=== PATIENT | female | born 1950 | race Caucasian/White ===

== ENCOUNTER 2017-12-06 19:33 | Emergency (ER) | payer MEDICARE, OTHER ==
[~2017-12-06] VITALS: Ht 157.5 cm; Wt 79.0 kg
[~2017-12-06 19:33] MED LIST: METO-292 PO; ONDA4TAB6 PO
[2017-12-06] MEDS ORDERED: ketorolac trometh inj. 60 MG/2 ML VIAL IM ONE (20:00)
[2017-12-06] MEDS ORDERED: orphenadrine citrate 60mg/2ml inj. IM ONE (20:00)
[2017-12-06] MEDS ORDERED: morphine 4 MG/ML inj SYRINge IV ONE (20:00)
[2017-12-06 20:41] VITALS: BP 127/82
== END 2017-12-06 20:54 | disposition home or self-care (01) ==
LOC: ER 19:33
DX: M54.5 Low back pain (principal); M62.838 Other muscle spasm; G89.29 Other chronic pain
CPT/HCPCS: 96374; 96375; 99284; J1885; J2270; J2360

== ENCOUNTER 2017-12-07 00:40 | Emergency (ER) | payer MEDICARE, OTHER ==
[~2017-12-07] VITALS: Ht 157.5 cm; Wt 79.0 kg
[2017-12-07] MEDS ORDERED: diazepam 5mg tablet PO ONE (01:35)
[2017-12-07] MEDS ORDERED: oxyCODONE/APAP 10/325mg tablet PO ONE (01:35)
[2017-12-07 01:43] VITALS: BP 136/90
== END 2017-12-07 01:48 | disposition home or self-care (01) ==
LOC: ER 00:40
DX: M54.5 Low back pain (principal); G89.29 Other chronic pain; Z88.1 Allergy status to other antibiotic agents
CPT/HCPCS: 99283

== ENCOUNTER 2018-09-01 11:06 | Emergency (ER) | payer MEDICARE, OTHER ==
[~2018-09-01] VITALS: Ht 157.5 cm; Wt 81.0 kg
[2018-09-01 11:10] VITALS: BP 123/78
[2018-09-01] MEDS ORDERED: acetaminophen 325mg tablet PO ONE (12:10)
[2018-09-01] MEDS ORDERED: ibuprofen tablet 400 MG TABLET PO ONE (12:10)
[2018-09-01] MEDS ORDERED: ondansetron 4mg rapidly disintigrating tab PO ONE (12:30)
[2018-09-01] MEDS ORDERED: HYDR-3965 PO (13:28)
== END 2018-09-01 13:33 | disposition home or self-care (01) ==
LOC: ER 11:07
DX: S06.0X0A Concussion without loss of consciousness, initial encounter (principal); G89.29 Other chronic pain; Z98.890 Other specified postprocedural states; Z88.8 Allergy status to other drugs, medicaments and biological substances; Z88.1 Allergy status to other antibiotic agents; W06.XXXA Fall from bed, initial encounter; Y93.89 Activity, other specified; Y92.89 Other specified places as the place of occurrence of the external cause; Y99.9 Unspecified external cause status
CPT/HCPCS: 70450; 99284

== ENCOUNTER 2018-09-10 14:20 | Observation (INO) | payer MEDICARE, OTHER ==
[~2018-09-10] VITALS: Ht 157.5 cm; Wt 84.0 kg
[~2018-09-10 14:20] MED LIST changes: +HYDR-3965 PO
[2018-09-10 15:32] LABS: BASOPHILS # (AUTO) 0.1 X10'3 (0-0.2); BASOPHILS % (AUTO) 0.8 % (0-1); EOSINOPHILS # (AUTO) 0.3 X10'3 (0-0.9); EOSINOPHILS % (AUTO) 3.5 % (0-6); HEMATOCRIT 40.7 % (35.0-45.0); HEMOGLOBIN 13.9 g/dl (12.0-16.0); LYMPHOCYTES # (AUTO) 4.4 X10'3 (1.1-4.8); LYMPHOCYTES % (AUTO) 45.7 % (21-51); MEAN CORPUSCULAR HEMOGLOBIN 29.3 PG (27.0-31.0); MEAN CORPUSCULAR HGB CONC 34.2 % (33.0-36.5); MEAN CORPUSCULAR VOLUME 85.6 FL (78-98); MEAN PLATELET VOLUME 6.5 FL (7.4-10.4); MONOCYTES # (AUTO) 0.6 X10'3 (0-0.9); NEUTROPHILS # (AUTO) 4.3 X10'3 (1.8-7.7); PLATELET COUNT 348 X10'3 (140-440); RED BLOOD COUNT 4.75 X10'6 (4.20-5.60); RED CELL DISTRIBUTION WIDTH 13.5 % (11.5-14.5); WHITE BLOOD COUNT 9.7 X10'3 (4.5-11.0)
[2018-09-10 15:51] LABS: PARTIAL THROMBOPLASTIN TIME 24 SECONDS (22-32)
[2018-09-10 16:03] LABS: ALANINE AMINOTRANSFERASE 16 U/L (12-78); ALBUMIN 3.7 G/DL (3.4-5.0); ALBUMIN/GLOBULIN RATIO 0.9 (1.1-1.5); ALKALINE PHOSPHATASE 67 IU/L (46-116); ANION GAP 10 (8-16); ASPARTATE AMINO TRANSFERASE 11 U/L (10-37); BILIRUBIN,TOTAL 0.2 MG/DL (0.1-1.0); BLOOD UREA NITROGEN 10 MG/DL (7-18); CALCIUM 9.2 MG/DL (8.5-10.1); CHLORIDE 100 MMOL/L (99-107); CREATININE 0.77 MG/DL (0.40-0.90); GLUCOSE 92 MG/DL (70-104); MAGNESIUM 1.7 MG/DL (1.5-2.4); PHOSPHORUS 3.7 MG/DL (2.3-4.5); POTASSIUM 4.1 MMOL/L (3.5-5.1); SODIUM 137 MMOL/L (135-145); TOTAL CARBON DIOXIDE 27.3 MMOL/L (24-32); TOTAL PROTEIN 7.8 G/DL (6.4-8.2); eGFR 75 ML/MIN
[2018-09-10 16:15] LABS: CLARITY,URINE SLIGHTLY CLOUDY (Clear); COLOR,URINE YELLOW (Yellow); GLUCOSE, URINE NEGATIVE (Neg); KETONES,URINE NEGATIVE (Neg); LEUKOCYTE ESTERASE ,URINE SMALL (Neg); NITRITES, URINE NEGATIVE (Neg); OCCULT BLOOD,URINE NEGATIVE (Neg); PROTEIN,URINE TRACE mg/dl (Neg); UROBILINOGEN,URINE 0.2 E.U/dL (0.2-1.0)
[2018-09-10 16:18] LABS: UA COLLECTION TYPE CLN CATCH MIDSTREAM
[2018-09-10 16:24] LABS: BACTERIA,URINE 1+ /HPF (Neg); RBC,URINE 0-2 /HPF (0-2); WBC,URINE 50-100 /HPF (0-4)
[2018-09-10 16:25] LABS: CAL OXALATE CRYSTALS 1+ /HPF (NEGATIVE); SQUAMOUS EPITHELIAL CELL,UR FEW /LPF (FEW); TRANSITIONAL EPI CELLS,URINE FEW /HPF; WBC CLUMPS,URINE MODERATE /HPF (NEGATIVE)
[2018-09-10 16:41] LABS: ABG BASE EXCESS -1.7 mmol/L (-2.0-3.0); ABG HCO3 23.7 mmol/L (22.0-26.0); ABG OXYGEN SATURATION 95.5 % (95-98); ABG PCO2 (T) 42.6 mmHg (32.0-45.0); ABG PH (T) 7.364 (7.350-7.450); ABG PO2 (T) 78.5 mmHg (83-108); ALLEN'S TEST Positive; FCOHb 0.8 % (0.5-1.5); FLOW 4 L/min; FO2Hb 94.7 % (94-100)
[2018-09-10] MEDS ORDERED: iohexol 350MG/ML 100ml bottle IV ONE (16:42)
[2018-09-10] MEDS ORDERED: CefTRIAXone/D5W-Rocephin 1gm 50 ML IV ONE (16:50)
[2018-09-10] MEDS ORDERED: aspirin 325mg tablet PO ONE (17:05)
[2018-09-10] MEDS ORDERED: traMADol 50MG tablet PO ONE (17:15)
[2018-09-10] MEDS ORDERED: CARI350T28 (17:34)
[2018-09-10] MEDS ORDERED: ONDA4TAB12 (17:34)
[2018-09-10] MEDS ORDERED: SUMA6PEN9 (17:34)
[2018-09-10] MEDS ORDERED: CYCL-1 (17:34)
[2018-09-10] MEDS ORDERED: PROM25TA14 (17:34)
[2018-09-10] MEDS ORDERED: IBUP-1985 (17:34)
[2018-09-10] MEDS ORDERED: DIAZ10TA15 (17:34)
[2018-09-10] MEDS ORDERED: potassium Cl 40MEQ/NS 500ml 500 ML IV PRN ×2 (18:15)
[2018-09-10] MEDS ORDERED: mag hydrox/Alum hydrox/simeth 30ml oral suspension PO PRN (18:15)
[2018-09-10] MEDS ORDERED: magnesium hydroxide 30ml (MOM) UD suspension PO PRN (18:15)
[2018-09-10] MEDS ORDERED: magnesium Cl slow-release 64mg tablet PO PRN (18:15)
[2018-09-10] MEDS ORDERED: acetaminophen 325mg tablet PO PRN ×2 (18:15)
[2018-09-10] MEDS ORDERED: magnesium 4gm in 100ml NS 100 ML IV PRN (18:15)
[2018-09-10] MEDS ORDERED: potassium Cl 20 mEq SR tablet PO PRN ×2 (18:15)
[2018-09-10] MEDS: normal saline 1000ml 1,000 ML IV SCH (18:30)
[2018-09-10] MEDS: morphine 2 MG/ML inj. syringe IV PRN (18:53)
[2018-09-10 19:06] LABS: HEMOGLOBIN A1C 5.7 % (4.5-6.2)
[2018-09-10 19:09] LABS: CHOL/HDL RATIO 7.3 (0.00-4.99); CHOLESTEROL 277 MG/DL (0-200); HDL CHOLESTEROL 38 MG/DL (35-60); LDL CHOLESTEROL 136 MG/DL (50-100); TRIGLYCERIDES 529 MG/DL (20-135)
[2018-09-10 20:40] VITALS: BP 122/74
[2018-09-10] MEDS ORDERED: temazepam 15mg capsule PO PRN (21:00)
[2018-09-10 21:59] VITALS: BP_SYST 111; BP_SYST 120; BP_DIAS 65; BP_DIAS 66
[2018-09-10 22:00] VITALS: BP 120/66
[2018-09-10] MEDS: HYDROcodone/acetaminophen 5mg/325mg tablet PO PRN (22:14)
[2018-09-10] MEDS ORDERED: GABA-532 PO (22:58)
[2018-09-10] MEDS: ondansetron/PF 4mg/2ml inj IV PRN (23:13)
[2018-09-10] MEDS ORDERED: gabapentin 300mg capsule PO ONE (23:24)
[2018-09-11] VITALS (7 sets, daily range): BP systolic 105–169; BP diastolic 59–90
[2018-09-11] MEDS: morphine 2 MG/ML inj. syringe IV PRN ×4 (01:01→23:43)
[2018-09-11 03:26] LABS: ALANINE AMINOTRANSFERASE 14 U/L (12-78); ALBUMIN 3.1 G/DL (3.4-5.0); ALBUMIN/GLOBULIN RATIO 0.9 (1.1-1.5); ALKALINE PHOSPHATASE 59 IU/L (46-116); ANION GAP 11 (8-16); ASPARTATE AMINO TRANSFERASE 12 U/L (10-37); BILIRUBIN,TOTAL 0.2 MG/DL (0.1-1.0); BLOOD UREA NITROGEN 12 MG/DL (7-18); BUN/CREATININE RATIO 13.6 (6.6-38.0); CALCIUM 8.3 MG/DL (8.5-10.1); CHLORIDE 101 MMOL/L (99-107); CREATININE 0.88 MG/DL (0.40-0.90); GLUCOSE 118 MG/DL (70-104); POTASSIUM 3.7 MMOL/L (3.5-5.1); SODIUM 139 MMOL/L (135-145); TOTAL CARBON DIOXIDE 26.6 MMOL/L (24-32); TOTAL PROTEIN 6.7 G/DL (6.4-8.2); eGFR 64 ML/MIN
[2018-09-11 03:31] LABS: MAGNESIUM 1.6 MG/DL (1.5-2.4)
[2018-09-11 03:38] LABS: BASOPHILS # (AUTO) 0.1 X10'3 (0-0.2); BASOPHILS % (AUTO) 0.6 % (0-1); EOSINOPHILS # (AUTO) 0.3 X10'3 (0-0.9); EOSINOPHILS % (AUTO) 3.7 % (0-6); HEMATOCRIT 37.2 % (35.0-45.0); HEMOGLOBIN 12.5 g/dl (12.0-16.0); LYMPHOCYTES # (AUTO) 3.4 X10'3 (1.1-4.8); LYMPHOCYTES % (AUTO) 40.4 % (21-51); MEAN CORPUSCULAR HGB CONC 33.7 % (33.0-36.5); MEAN PLATELET VOLUME 6.9 FL (7.4-10.4); MONOCYTES # (AUTO) 0.5 X10'3 (0-0.9); MONOCYTES % (AUTO) 5.8 % (2-12); NEUTROPHILS # (AUTO) 4.2 X10'3 (1.8-7.7); NEUTROPHILS % (AUTO) 49.5 % (42-75); PLATELET COUNT 307 X10'3 (140-440); RED BLOOD COUNT 4.32 X10'6 (4.20-5.60); RED CELL DISTRIBUTION WIDTH 13.5 % (11.5-14.5); WHITE BLOOD COUNT 8.5 X10'3 (4.5-11.0)
[2018-09-11] MEDS: normal saline 1000ml 1,000 ML IV SCH ×3 (03:44→22:52)
[2018-09-11] MEDS: HYDROcodone/acetaminophen 5mg/325mg tablet PO PRN ×4 (05:35→22:08)
[2018-09-11] MEDS: K and/or MAG REPLACEMENT MC SCH (08:00)
[2018-09-11] MEDS: CefTRIAXone 2gm/D5W 50ml 50 ML IV SCH (08:03)
[2018-09-11] MEDS: enoxaparin 40mg/0.4ml syringe SQ SCH (08:07)
[2018-09-11] MEDS: ondansetron/PF 4mg/2ml inj IV PRN ×2 (09:14→22:52)
[2018-09-11] MEDS ORDERED: LORazepam 2 mg/ml vial IV ONE (09:15)
[2018-09-11] MEDS: atorvastatin 20mg tablet PO SCH (12:42)
[2018-09-11] MEDS: aspirin 81mg tab.chew PO SCH (12:42)
[2018-09-11] MEDS ORDERED: iohexol 350MG/ML 100ml bottle IV ONE (15:00)
[2018-09-11] MEDS: lactobacillus rhamnosus 10,000 MMU CELLS/CAPSULE PO SCH (20:29)
[2018-09-11] MEDS: omega-3 acid ethyl esters 1GM capsule PO SCH (20:29)
[2018-09-11] MEDS ORDERED: gabapentin 300mg capsule PO SCH (21:00)
[2018-09-12 01:58] VITALS: BP 129/69
[2018-09-12] MEDS: HYDROcodone/acetaminophen 5mg/325mg tablet PO PRN ×2 (04:12→09:12)
[2018-09-12 05:57] VITALS: BP 112/60
[2018-09-12 06:00] VITALS: BP 112/60
[2018-09-12 06:03] LABS: BASOPHILS % (AUTO) 0.5 % (0-1); EOSINOPHILS # (AUTO) 0.5 X10'3 (0-0.9); EOSINOPHILS % (AUTO) 5.9 % (0-6); HEMATOCRIT 38.5 % (35.0-45.0); HEMOGLOBIN 13.1 g/dl (12.0-16.0); LYMPHOCYTES # (AUTO) 2.6 X10'3 (1.1-4.8); LYMPHOCYTES % (AUTO) 33.8 % (21-51); MEAN CORPUSCULAR VOLUME 85.4 FL (78-98); MEAN PLATELET VOLUME 6.8 FL (7.4-10.4); MONOCYTES # (AUTO) 0.5 X10'3 (0-0.9); MONOCYTES % (AUTO) 6.2 % (2-12); NEUTROPHILS # (AUTO) 4.1 X10'3 (1.8-7.7); NEUTROPHILS % (AUTO) 53.6 % (42-75); PLATELET COUNT 290 X10'3 (140-440); RED BLOOD COUNT 4.51 X10'6 (4.20-5.60); RED CELL DISTRIBUTION WIDTH 13.2 % (11.5-14.5); WHITE BLOOD COUNT 7.7 X10'3 (4.5-11.0)
[2018-09-12 06:23] LABS: ALANINE AMINOTRANSFERASE 13 U/L (12-78); ALBUMIN/GLOBULIN RATIO 0.8 (1.1-1.5); ALKALINE PHOSPHATASE 56 IU/L (46-116); ANION GAP 9 (8-16); ASPARTATE AMINO TRANSFERASE 10 U/L (10-37); BILIRUBIN,TOTAL 0.2 MG/DL (0.1-1.0); BLOOD UREA NITROGEN 9 MG/DL (7-18); BUN/CREATININE RATIO 13.8 (6.6-38.0); CALCIUM 8.6 MG/DL (8.5-10.1); CHLORIDE 105 MMOL/L (99-107); CREATININE 0.65 MG/DL (0.40-0.90); GLUCOSE 109 MG/DL (70-104); MAGNESIUM 1.8 MG/DL (1.5-2.4); POTASSIUM 3.8 MMOL/L (3.5-5.1); SODIUM 140 MMOL/L (135-145); TOTAL CARBON DIOXIDE 25.8 MMOL/L (24-32); TOTAL PROTEIN 6.6 G/DL (6.4-8.2); eGFR > 90 ML/MIN
[2018-09-12] MEDS: morphine 2 MG/ML inj. syringe IV PRN (06:46)
[2018-09-12 08:00] VITALS: BP 137/80
[2018-09-12] MEDS: K and/or MAG REPLACEMENT MC SCH (08:00)
[2018-09-12] MEDS: aspirin 81mg tab.chew PO SCH (08:10)
[2018-09-12] MEDS: lactobacillus rhamnosus 10,000 MMU CELLS/CAPSULE PO SCH (08:10)
[2018-09-12] MEDS: atorvastatin 20mg tablet PO SCH (08:10)
[2018-09-12] MEDS: omega-3 acid ethyl esters 1GM capsule PO SCH (08:11)
[2018-09-12] MEDS: CefTRIAXone 2gm/D5W 50ml 50 ML IV SCH (08:12)
[2018-09-12] MEDS: enoxaparin 40mg/0.4ml syringe SQ SCH (08:14)
[2018-09-12] MEDS: normal saline 1000ml 1,000 ML IV SCH (09:09)
[2018-09-12] MEDS ORDERED: LEVO500T89 PO (10:11)
[2018-09-12] MEDS ORDERED: ATOR20TA66 PO (10:11)
[2018-09-12] MEDS ORDERED: LACT1CAP26 PO (10:11)
[2018-09-12] MEDS ORDERED: OMEG1CAP PO (10:11)
== END 2018-09-12 12:00 | disposition home or self-care (01) ==
LOC: ER 14:21 → ED HOLD 18:15 → ORTHO 4S 20:35
PROVIDERS: ADMIT Internal Medicine; ATTEND Internal Medicine
DX: G45.9 Transient cerebral ischemic attack, unspecified (principal); N39.0 Urinary tract infection, site not specified; G57.92 Unspecified mononeuropathy of left lower limb; I10 Essential (primary) hypertension; G89.4 Chronic pain syndrome; J96.01 Acute respiratory failure with hypoxia; B96.20 Unspecified Escherichia coli [E. coli] as the cause of diseases classified elsewhere; R42 Dizziness and giddiness; S06.0X9A Concussion with loss of consciousness of unspecified duration, initial encounter; X58.XXXA Exposure to other specified factors, initial encounter; Y93.89 Activity, other specified; Y92.89 Other specified places as the place of occurrence of the external cause; Y99.8 Other external cause status
CPT/HCPCS: 36415; 36600; 70450; 70496; 70498; 70551; 71045; 71275; 80053; 80061; 81001; 82803; 83036; 83735; 84100; 84484; 85018; 85025; 85610; 85730; 87070; 87077; 87088; 87186; 93306; 93880; 94760; 96361; 96365; 96366; 96372; 96375; 96376; 97116; 97161; 97530; 99284; G0378; J0696; J2060; J2270; J2405; J7030; Q9967; J1650

== ENCOUNTER 2018-10-16 06:32 | Emergency (ER) | payer MEDICARE, OTHER ==
[~2018-10-16] VITALS: Ht 157.5 cm; Wt 83.0 kg
[~2018-10-16 06:32] MED LIST changes: +ATOR20TA66 PO; +GABA-532 PO; -HYDR-3965 PO; +LACT1CAP26 PO; -METO-292 PO; +OMEG1CAP PO; +SUMA6PEN9
[2018-10-16] MEDS ORDERED: orphenadrine citrate 60mg/2ml inj. IM ONE (06:45)
[2018-10-16] MEDS ORDERED: ketorolac trometh inj. 60 MG/2 ML VIAL IM ONE (06:45)
[2018-10-16] MEDS ORDERED: HYDROcodone/acetaminophen 10/325mg tab PO ONE (06:45)
[2018-10-16] MEDS ORDERED: ASPI-1265 PO (06:52)
[2018-10-16] MEDS ORDERED: CARSR60C PO (06:52)
[2018-10-16] MEDS ORDERED: ondansetron 4mg rapidly disintigrating tab PO ONE (06:55)
[2018-10-16] MEDS ORDERED: morphine 4 MG/ML inj SYRINge IM ONE ×2 (07:05→09:25)
[2018-10-16] MEDS ORDERED: ORPH100T2 PO (09:17)
[2018-10-16] MEDS ORDERED: HYDR-4353 PO (09:17)
[2018-10-16 09:34] VITALS: BP 130/69
== END 2018-10-16 09:59 | disposition home or self-care (01) ==
LOC: ER 06:33
DX: S09.90XA Unspecified injury of head, initial encounter (principal); G89.29 Other chronic pain; M54.2 Cervicalgia; I10 Essential (primary) hypertension; Z98.51 Tubal ligation status; Z98.890 Other specified postprocedural states; Z88.1 Allergy status to other antibiotic agents; Z88.8 Allergy status to other drugs, medicaments and biological substances; Z79.82 Long term (current) use of aspirin; Z79.899 Other long term (current) drug therapy; W06.XXXA Fall from bed, initial encounter; Y93.89 Activity, other specified; Y92.89 Other specified places as the place of occurrence of the external cause; Y99.8 Other external cause status
CPT/HCPCS: 70450; 72125; 93005; 96372; 99284; J2270; J2360

== ENCOUNTER 2019-01-07 03:51 | Emergency (ER) | payer MEDICARE, OTHER ==
[~2019-01-07] VITALS: Ht 157.5 cm; Wt 79.1 kg
[~2019-01-07 03:51] MED LIST changes: +ASPI-1265 PO; -ATOR20TA66 PO; +CARSR60C PO; -LACT1CAP26 PO; -OMEG1CAP PO; -ONDA4TAB6 PO; +ORPH100T2 PO
[2019-01-07 03:58] VITALS: BP 140/85
[2019-01-07] MEDS ORDERED: HYDROcodone/acetaminophen 5mg/325mg tablet PO ONE (04:10)
[2019-01-07] MEDS ORDERED: ketorolac trometh inj. 60 MG/2 ML VIAL IM ONE (04:10)
[2019-01-07] MEDS ORDERED: cyclobenzaprine 10mg tablet PO ONE (04:10)
[2019-01-07] MEDS ORDERED: LIDOcaine 5% patch TP ONE (04:10)
[2019-01-07] MEDS ORDERED: acetaminophen 325mg tablet PO ONE (04:10)
[2019-01-07] MEDS ORDERED: LIDO700A32 TOP (04:13)
[2019-01-07] MEDS ORDERED: HYDR-3965 PO (04:13)
[2019-01-07] MEDS ORDERED: CYCL-1 PO (04:13)
[2019-01-07] MEDS ORDERED: ondansetron 4mg rapidly disintigrating tab PO ONE (04:15)
[2019-01-07] MEDS ORDERED: proCHLORperazine 10 MG/2 ml inj IM ONE (04:20)
[2019-01-07] MEDS ORDERED: DIPH50CA3 PO (04:28)
--- NOTE | 2019-01-07 04:55 | NUR ---
pt requesting something for discharge to help her sleep. dr. crook updated and writing her a perscription for benedryl. pt reports she takes benedryl at night and it has not been helping. she requests a few doses of md roberth will not provide pt a perscription for this. pt reports she is disapointed.
== END 2019-01-07 05:07 | disposition home or self-care (01) ==
LOC: ER 03:52
DX: M54.5 Low back pain (principal); G89.29 Other chronic pain; I10 Essential (primary) hypertension; Z56.0 Unemployment, unspecified; Z88.1 Allergy status to other antibiotic agents; Z79.82 Long term (current) use of aspirin; Z98.51 Tubal ligation status
CPT/HCPCS: 96372; 99283; J0780; J1885

== ENCOUNTER 2019-03-05 16:46 | Emergency (ER) | payer MEDICARE, OTHER ==
[~2019-03-05] VITALS: Ht 157.5 cm; Wt 79.0 kg
[~2019-03-05 16:46] MED LIST changes: +CYCL-1 PO; +DIPH50CA3 PO; +LIDO700A32 TOP
[2019-03-05] MEDS ORDERED: proCHLORperazine 10 MG/2 ml inj IM ONE (18:55)
[2019-03-05] MEDS ORDERED: diphenhydrAMINE 50 mg/ml inj IM ONE (18:55)
[2019-03-05 20:51] VITALS: BP 123/69
== END 2019-03-05 20:56 | disposition home or self-care (01) ==
LOC: ER 16:46
DX: G89.29 Other chronic pain (principal); R68.84 Jaw pain; I10 Essential (primary) hypertension; G43.909 Migraine, unspecified, not intractable, without status migrainosus; Z98.890 Other specified postprocedural states; Z98.51 Tubal ligation status; Z56.0 Unemployment, unspecified; Z88.8 Allergy status to other drugs, medicaments and biological substances; Z88.1 Allergy status to other antibiotic agents; Z79.82 Long term (current) use of aspirin; Z79.899 Other long term (current) drug therapy
CPT/HCPCS: 36415; 70150; 85651; 96372; 99284; J0780; J1200

== ENCOUNTER 2019-08-13 17:21 | Emergency (ER) | payer MEDICARE, OTHER ==
[~2019-08-13] VITALS: Ht 157.5 cm; Wt 77.0 kg
[2019-08-13 18:14] LABS: BASOPHILS # (AUTO) 0.1 X10'3 (0-0.2); BASOPHILS % (AUTO) 1.1 % (0-1); EOSINOPHILS # (AUTO) 0.2 X10'3 (0-0.9); HEMATOCRIT 42.1 % (35.0-45.0); LYMPHOCYTES # (AUTO) 5.2 X10'3 (1.1-4.8); LYMPHOCYTES % (AUTO) 42.5 % (21-51); MEAN CORPUSCULAR HGB CONC 35.7 g/dL (33.0-36.5); MEAN CORPUSCULAR VOLUME 84.1 FL (78-98); MONOCYTES # (AUTO) 0.8 X10'3 (0-0.9); MONOCYTES % (AUTO) 6.7 % (2-12); NEUTROPHILS # (AUTO) 5.9 X10'3 (1.8-7.7); NEUTROPHILS % (AUTO) 47.7 % (42-75); PLATELET COUNT 359 X10'3 (140-440); RED BLOOD COUNT 5.01 X10'6 (4.20-5.60); RED CELL DISTRIBUTION WIDTH 13.7 % (11.5-14.5); WHITE BLOOD COUNT 12.3 X10'3 (4.5-11.0)
[2019-08-13] MEDS ORDERED: aspirin 81mg tab.chew PO ONE (18:15)
[2019-08-13] MEDS ORDERED: ondansetron 4mg rapidly disintigrating tab PO ONE (18:15)
[2019-08-13 18:21] LABS: ALANINE AMINOTRANSFERASE 14 U/L (12-78); ALBUMIN 3.9 G/DL (3.4-5.0); ALBUMIN/GLOBULIN RATIO 0.8 (1.1-1.5); ALKALINE PHOSPHATASE 77 IU/L (46-116); ANION GAP 15 (8-16); ASPARTATE AMINO TRANSFERASE 12 U/L (10-37); BILIRUBIN,TOTAL 0.4 MG/DL (0.1-1.0); BLOOD UREA NITROGEN 11 MG/DL (7-18); BUN/CREATININE RATIO 14.5 (6.6-38.0); CALCIUM 9.8 MG/DL (8.5-10.1); CHLORIDE 101 MMOL/L (99-107); CREATININE 0.76 MG/DL (0.40-0.90); GLUCOSE 107 MG/DL (70-104); SODIUM 138 MMOL/L (135-145); TOTAL CARBON DIOXIDE 22.3 MMOL/L (24-32); TOTAL PROTEIN 8.7 G/DL (6.4-8.2); eGFR 76 ML/MIN
[2019-08-13] MEDS ORDERED: LORazepam 2 mg/ml vial IV ONE (19:10)
[2019-08-13] MEDS ORDERED: ketorolac tromethamine 15mg/ml inj. IV ONE (19:10)
[2019-08-13] MEDS ORDERED: normal saline 1000ML IV soln IVB ONE (19:45)
[2019-08-13] MEDS ORDERED: oxyCODONE IR 5mg (immed. release) tablet PO ONE (19:50)
[2019-08-13 21:00] VITALS: BP 102/64
[2019-08-13 21:17] LABS: CLARITY,URINE CLEAR (Clear); COLOR,URINE YELLOW (Yellow); GLUCOSE, URINE NEGATIVE (Neg); KETONES,URINE NEGATIVE (Neg); LEUKOCYTE ESTERASE ,URINE SMALL (Neg); NITRITES, URINE NEGATIVE (Neg); OCCULT BLOOD,URINE NEGATIVE (Neg); PH,URINE 5.5 (4.8-8.0); PROTEIN,URINE NEGATIVE (Neg); UROBILINOGEN,URINE 0.2 E.U/dL (0.2-1.0)
[2019-08-13 21:18] LABS: UA COLLECTION TYPE CLN CATCH MIDSTREAM
[2019-08-13] MEDS ORDERED: mag hydrox/Alum hydrox/simeth 30ml oral suspension PO ONE (21:25)
[2019-08-13 21:26] LABS: BACTERIA,URINE NONE SEEN /HPF (Neg); RBC,URINE NONE SEEN /HPF (0-2); SQUAMOUS EPITHELIAL CELL,UR FEW /LPF (FEW); WBC,URINE 0-4 /HPF (0-4)
[2019-08-13] MEDS ORDERED: LORazepam 1 MG tablet PO ONE (21:50)
[2019-08-13] MEDS ORDERED: ONDA4TAB12 PO (21:51)
== END 2019-08-13 22:08 | disposition home or self-care (01) ==
LOC: ER 17:21
DX: R07.89 Other chest pain (principal); R11.2 Nausea with vomiting, unspecified; R10.13 Epigastric pain; I10 Essential (primary) hypertension; G89.29 Other chronic pain; Z56.0 Unemployment, unspecified; Z98.51 Tubal ligation status; Z98.890 Other specified postprocedural states; Z88.1 Allergy status to other antibiotic agents; Z79.82 Long term (current) use of aspirin
CPT/HCPCS: 36415; 71045; 80053; 81001; 84484; 85025; 87088; 93005; 96361; 96374; 96375; 99284; J1885; J2060; J7030

== ENCOUNTER 2021-07-20 13:08 | Emergency (ER) | payer OTHER ==
[~2021-07-20] VITALS: Ht 157.5 cm; Wt 84.9 kg
[~2021-07-20 13:08] MED LIST changes: +ONDA4TAB12 PO
[2021-07-20 13:49] VITALS: BP 160/103
[2021-07-20] MEDS ORDERED: metoclopramide 5 mg/ml inj IM ONE (14:50)
[2021-07-20] MEDS ORDERED: diphenhydrAMINE 50 mg/ml inj IM ONE (14:50)
[2021-07-20] MEDS ORDERED: morphine 4 MG/ML inj SYRINge IM ONE (14:50)
[2021-07-20] MEDS ORDERED: MELA10TA PO (14:52)
[2021-07-20] MEDS ORDERED: LORA-269 PO (14:57)
== END 2021-07-20 16:48 | disposition home or self-care (01) ==
LOC: ER 13:09
DX: R51.9 Headache, unspecified (principal); I10 Essential (primary) hypertension; G89.29 Other chronic pain; Z98.51 Tubal ligation status; Z98.890 Other specified postprocedural states; Z56.0 Unemployment, unspecified; Z88.1 Allergy status to other antibiotic agents; Z88.8 Allergy status to other drugs, medicaments and biological substances; Z79.82 Long term (current) use of aspirin; Z79.899 Other long term (current) drug therapy
CPT/HCPCS: 96372; 99284; J1200; J2270; J2765

== ENCOUNTER 2021-10-03 17:46 | Emergency (ER) | payer OTHER, MEDICARE ==
[~2021-10-03] VITALS: Ht 157.5 cm; Wt 83.5 kg
[~2021-10-03 17:46] MED LIST changes: -DIPH50CA3 PO; +DIPH50CA40 PO; +LORA-269 PO; +MELA10TA PO; +SUMA6PEN13; -SUMA6PEN9
[2021-10-03 18:01] VITALS: BP 152/77
== END 2021-10-04 04:38 | disposition left against medical advice (07) ==
LOC: ER 17:46
DX: R51.9 Headache, unspecified (principal); Z53.21 Procedure and treatment not carried out due to patient leaving prior to being seen by health care provider
CPT/HCPCS: 70450

== ENCOUNTER 2021-11-01 14:13 | Emergency (ER) | payer MEDICARE, OTHER ==
[~2021-11-01] VITALS: Ht 157.5 cm; Wt 79.0 kg
[2021-11-01 15:14] VITALS: BP 153/98
[2021-11-01] MEDS ORDERED: CYCL-1 PO (15:29)
[2021-11-01] MEDS ORDERED: ketorolac trometh. 30mg/ml inj. IV ONE (15:30)
[2021-11-01] MEDS ORDERED: cyclobenzaprine 10mg tablet PO ONE (15:30)
[2021-11-01] MEDS ORDERED: ketorolac tromethamine 15mg/ml inj. IV ONE (15:55)
== END 2021-11-01 17:00 | disposition home or self-care (01) ==
LOC: ER 14:14
DX: M54.2 Cervicalgia (principal); G89.29 Other chronic pain; R51.9 Headache, unspecified; I10 Essential (primary) hypertension; Z98.51 Tubal ligation status; Z98.890 Other specified postprocedural states; Z56.0 Unemployment, unspecified; Z88.1 Allergy status to other antibiotic agents; Z88.8 Allergy status to other drugs, medicaments and biological substances; Z79.82 Long term (current) use of aspirin; Z79.899 Other long term (current) drug therapy
CPT/HCPCS: 96374; 99283; J1885